=== PATIENT | male | born 1950 | race Caucasian/White ===

== ENCOUNTER 2022-09-11 01:41 | Emergency (ER) | payer OTHER, SELFPAY ==
[2022-09-11 01:50] VITALS: BP 134/88; PULSE 99; RESP 22; TEMP 36.7; O2SAT 98
[2022-09-11] MEDS: Lidocaine 2% Jelly 6 ML SYR ×2 (02:05→02:15)
--- NOTE | 2022-09-11 02:29 | W.ED.GENAD ---
Discharge Plan Disposition Patient Disposition: Home Condition: Good Discharge Details Clinical Impression: Acute urinary retention Primary Care Provider: [facility] Provider: Ovidio Reyes Home Meds and New Rx's Prescriptions: Continued metoprolol succinate 50 mg Tablet Extended Release 24 Hr 50 mg PO DAILY aspirin 81 mg Tablet,Delayed Release (Dr/Ec) 81 mg PO DAILY valsartan 320 mg Tablet 320 mg PO DAILY hydrochlorothiazide 25 mg Tablet 25 mg PO DAILY fluticasone propionate 50 mcg/actuation [place],Suspension 2 spray INTRANASAL DAILY Rx Instructions: administer into each nostril rosuvastatin 40 mg Tablet 40 mg PO DAILY Praluent Pen 75 mg/mL Pen Injector 75 mg SUBCUT Q14D Gemtesa 75 mg Tablet 75 mg PO DAILY Discharge Instructions Instructions: Urinary Retention in Men (ED), White Catheter Placement and Care (ED) Additional Instructions: Please leave the White catheter in until you are able to follow-up with your urologist. Please follow-up with your urologist within the next week. If you notice any worsening of your symptoms, or any new symptoms such as vomiting, diarrhea, fever, chills, shortness of breath, chest pain, numbness, weakness, or fainting , please return immediately to the emergency department for reevaluation. Please follow up with your primary care provider as soon as possible for reassessment and reevaluation. As always, it was a pleasure participating in your medical care today. Medical Decision Making This is a pleasant 72-year-old male with a past medical history of quadruple bypass, prostatectomy in 2019, and subsequent radiation therapy, hypertension, high cholesterol, who presents today for evaluation of difficulty urinating. Patient states that over the last few days he has had increasing difficulty urinating. The only time he needed a White catheter in the past was when he had his prostatectomy. He denies any blood, fever, chills or other complaints. Symptoms have gradually been worsening up until tonight when he could not urinate for the last 14 hours. He is taking Vibegron 75 mg which was prescribed to him by his urologist at home in [place]. He is currently staying up here as he has a home/second home at [facility]. Aside for pressure in the suprapubic area, he denies any other complaints. Physical exam demonstrates notable fullness in the suprapubic region suggestive of a distended bladder. Penile exam does demonstrate some continuous mild leaking. We will attempt White catheter. Suspect scarring and hypertrophy as to the cause of his current urinary retention. We catheter was placed without complication by nursing staff. Patient tolerated this well. 1200 mL of urine was removed. Patient feels much better now. I discussed risks and benefits of removing the White versus leaving the White in temporarily until he can follow-up with his urologist in the next week, and he requests to leave the White in at this time and will follow-up closely with his urologist in [place]. Patient is otherwise stable for discharge. He feels much better. Urinalysis clear. Discussed red flags for which to return. I have extensively reviewed the treatment plan and discharge instructions with the patient. I have addressed all patient concerns at this time. The patient was made aware of what symptoms to monitor for that would warrant a return to the emergency department. Discussed the plan with the patient, they demonstrate verbal understanding and agreement with our assessment and plan at this time. The documentation in this chart was dictated using [employer] dictation software. Please excuse any dictation errors. HPI General Date/Time Provider Initiated Documentation: 09/11/22 01:42. HPI Narrative: This is a pleasant 72-year-old male with a past medical history of quadruple bypass, prostatectomy in 2019, and subsequent radiation therapy, hypertension, high cholesterol, who presents today for evaluation of difficulty urinating. Patient states that over the last few days he has had increasing difficulty urinating. The only time he needed a White catheter in the past was when he had his prostatectomy. He denies any blood, fever, chills or other complaints. Symptoms have gradually been worsening up until tonight when he could not urinate for the last 14 hours. He is taking Vibegron 75 mg which was prescribed to him by his urologist at home in [place]. He is currently staying up here as he has a home/second home at [facility]. Aside for pressure in the suprapubic area, he denies any other complaints. Related Data Home Medications Medication Instructions Recorded Confirmed alirocumab 75 mg/mL subcutaneous 75 mg subcut Q14D 09/11/22 09/11/22 pen injector (Praluent Pen) aspirin 81 mg tablet,delayed 81 mg PO DAILY 09/11/22 09/11/22 release fluticasone propionate 50 2 spray intranasal DAILY 09/11/22 09/11/22 mcg/actuation nasal spray,suspension hydrochlorothiazide 25 mg tablet 25 mg PO DAILY 09/11/22 09/11/22 metoprolol succinate 50 mg 50 mg PO DAILY 09/11/22 09/11/22 tablet,extended release 24 hr rosuvastatin 40 mg tablet 40 mg PO DAILY 09/11/22 09/11/22 valsartan 320 mg tablet 320 mg PO DAILY 09/11/22 09/11/22 vibegron 75 mg tablet (Gemtesa) 75 mg PO DAILY 09/11/22 09/11/22 Allergies Allergy/AdvReac Type Severity Reaction Status Date / Time No Known Allergies Allergy Unverified 09/11/22 02:19 General Stated Complaint: Urinary CYNTHIA: 3 Review of Systems All systems reviewed & are unremarkable except as noted in HPI and below PFSH All Active Problems (Updated 09/11/22 @ 02:53 by Ovidio Reyes DO) Acute urinary retention (Acute) Social History Smoking/Tobacco Use Status: Former Tobacco Use Smoking risk assessment performed?: Yes Alcohol Intake: current Alcohol Intake frequency: a few times a month Substance use type: does not use Exam Narrative Exam Narrative: 1.Const: Well-nourished, Well-developed, appearing stated age 2.Eyes: PERRL, no conjunctival injection, and symmetrical lids. 3.ENT: Atraumatic external nose and ears. Moist MM. Neck: Symmetric, trachea midline, No thyromegaly. 4.CVS: +S1/S2, No murmurs or gallops. Peripheral pulses 2+ and equal in all extremities. Brisk capillary refill in all extremities. 5.RESP: Unlabored respiratory effort. Clear to auscultation bilaterally. No wheezes rales or rhonchi 6.GI: Soft, Nontender/Nondistended, No hepatosplenomegaly. No guarding or rebound. Notable suprapubic achiness, and a palpable bladder. 7.MSK: Normocephalic/Atraumatic, Extremities w/o deformity or ttp No cyanosis or clubbing, Normal movement of all extremities 8.Skin: Warm, Dry. No rashes or lesions. 9.Neuro: insulator cutter and former II-XII grossly intact. Sensation grossly intact, no focal neurologic deficits. 10.Psych: (AAO) x3. Appropriate mood and affect Course Vital Signs Vital signs: Vital Signs Temperature 36.7 C 09/11/22 01:50 Pulse 99 H 09/11/22 01:50 Respiratory Rate 22 09/11/22 01:50 Blood Pressure 134/88 09/11/22 01:50 Pulse Oximetry 98 09/11/22 01:50 Temperature 36.7 C 09/11/22 01:50 Pulse 99 H 09/11/22 01:50 Respiratory Rate 22 09/11/22 01:50 Respiratory Effort Normal 09/11/22 02:14 Blood Pressure 134/88 09/11/22 01:50 Blood Pressure Position Sitting 09/11/22 01:50 Pulse Oximetry 98 09/11/22 01:50 Oxygen Delivery Method Room Air 09/11/22 01:50 Oxygen Flow Rate 0 09/11/22 01:50
[2022-09-11 02:39] LABS: Bilirubin Negative (Negative); Blood Moderate (Negative); Clarity Clear (Clear); Glucose Negative (Negative); Ketones Negative (Negative); Leukocyte Esterase Negative (Negative); Nitrite Negative (Negative); Urobilinogen 0.2 mg/dL (Up to 0.2)
[2022-09-11 02:43] LABS: Bacteria Rare HPF (Negative); C & S Indicated? No; Casts Negative LPF (Negative); Crystals Negative HPF (Negative); Epithelial Cells Rare HPF (Negative); Mucus Negative (Negative); WBC Negative HPF (0-5)
[2022-09-11 03:03] VITALS: BP 111/57; PULSE 86; RESP 18; TEMP 36.5; O2SAT 92
== END 2022-09-11 03:35 | disposition home or self-care (01) ==
PROVIDERS: Emergency Provider Student in an Organized Health Care Education/Training Program
DX: R33.8 Other retention of urine (principal)
CPT/HCPCS: 51702; 99283; 81003; 81015